=== PATIENT | female | born 1950 | race African-American/Black ===

== ENCOUNTER 2021-05-06 17:37 | Emergency (ER) | payer OTHER ==
[~2021-05-06] VITALS: Ht 167.6 cm; Wt 73.0 kg
[2021-05-06] MEDS ORDERED: SODIUM CHLORIDE 0.9% 1,000 ML IV ONE ×2 (18:15)
[2021-05-06 18:32] LABS: HEMOGLOBIN. 9.5 g/dL (12.0-16.0); MEAN CORPUSCULAR VOLUME 91.1 fL (81.0-99.0); MEAN PLATELET VOLUME 8.3 fl (7.4-10.4); PLATELET 150 x1000/uL (130-400); RED BLOOD CELL COUNT 3.18 mill/uL (4.2-5.4); RED CELL DISTRIBUTION WIDTH 18.4 % (11.6-14.6)
[2021-05-06 18:38] LABS: CHLORIDE 105 mEq/L (98-107)
[2021-05-06 18:42] LABS: ETHANOL BLOOD < 10 mg/dL
[2021-05-06] MEDS ORDERED: ONDANSETRON HCL 4MG/2ML INJ IV ONE (18:45)
[2021-05-06 18:49] LABS: INR 1.1; PROTHROMBIN TIME 11.9 sec (9.6-11.0)
[2021-05-06 18:52] LABS: PLATELET ESTIMATE NORMAL
[2021-05-06] MEDS ORDERED: CEFEPIME 1,000 MG in DEXTROSE 5% WATER 50 ML IV STA (19:31)
[2021-05-06] MEDS ORDERED: VANCOMYCIN 1G PREMIX 200 ML IV STA (19:31)
[2021-05-07 00:23] VITALS: BP 93/59
== END 2021-05-07 00:30 | disposition short-term general hospital (02) ==
LOC: ER 17:37 → CANBEDREQ 05-07 00:08 → ER 05-07 00:30
DX: R55 Syncope and collapse (principal); A41.9 Sepsis, unspecified organism; I95.9 Hypotension, unspecified; E11.9 Type 2 diabetes mellitus without complications; I10 Essential (primary) hypertension; Z20.822 Contact with and (suspected) exposure to COVID-19
CPT/HCPCS: 36415; 71045; 80053; 80320; 82962; 83605; 83880; 84484; 85025; 85610; 87040; 87426; 93005; 96365; 96367; 96375; 99291; J0692; J2405; J3370; J7030; J7060; G0480